=== PATIENT | male | born 1960 | race Asian ===

== ENCOUNTER 2019-11-22 15:14 | Emergency (ER) | payer MEDICAID, OTHER ==
[~2019-11-22] VITALS: Ht 177.8 cm; Wt 62.7 kg
[2019-11-22] MEDS ORDERED: METF-960 PO (15:24)
[2019-11-22] MEDS ORDERED: ISOS30TA6 PO (15:26)
[2019-11-22] MEDS ORDERED: ATOR40TA71 PO (15:26)
[2019-11-22] MEDS ORDERED: ASPI-1111 PO (15:26)
[2019-11-22] MEDS ORDERED: GLIP5TAB11 PO (15:26)
[2019-11-22 15:39] LABS: GLUCOMETER DEV NAME(LOC) AHU.; GLUCOSE,POINT OF CARE 347 MG/DL (70-110)
[2019-11-22] MEDS ORDERED: SODIUM CHLORIDE 0.9% 1,000 ML IV ONE (16:30)
[2019-11-22] MEDS ORDERED: SODIUM PHOS/SODIUM BIPHOS 133 ML ENEMA PR ONE (17:45)
[2019-11-22 17:46] LABS: HEMATOCRIT 41.4 % (41-53); HEMOGLOBIN 13.3 g/dL (13.5-17.5); MEAN CORPUSCULAR HEMOGLOBIN 29.2 pg (26.0-34.0); MEAN CORPUSCULAR HGB CONC 32.2 G/dL (31.0-37.0); MEAN CORPUSCULAR VOLUME 91 fL (80-100); PLATELET COUNT (AUTO) 211 K/uL (150-450); RED BLOOD CELL COUNT(AUTO) 4.56 MIL/uL (4.50-5.90); RED CELL DISTRIBUTION WIDTH 12.6 % (11.5-14.5)
[2019-11-22 17:51] LABS: GLUCOMETER DEV NAME(LOC) AHU.; GLUCOSE,POINT OF CARE 296 MG/DL (70-110)
[2019-11-22 17:55] LABS: ANION GAP 13 mmol/L (8-16); CARBON DIOXIDE 23 mmol/L (22-29); CHLORIDE 101 mmol/L (98-107); CREATININE 0.89 mg/dL (0.60-1.30); GLOMERULAR FILTR. RATE CALC > 60 mL/min (>60); GLUCOSE,RANDOM 307 mg/dL (70-110); POTASSIUM 4.5 mmol/L (3.5-5.1); SODIUM SERUM 137 mmol/L (136-145); UREA NITROGEN, BLOOD 15 mg/dL (7-18)
[2019-11-22 18:00] LABS: ALANINE AMINOTRANSFERASE 18 U/L (12-78); ALBUMIN 3.6 g/dL (3.4-5.0); ALKALINE PHOSPHATASE 72 U/L (46-116); ASPARTATE AMINOTRANSFERASE 14 U/L (15-37); BILIRUBIN,TOTAL 0.6 mg/dL (0.1-1.0); LIPASE 112 U/L (73-393); TOTAL PROTEIN, SERUM 7.8 g/dL (6.4-8.2)
[2019-11-22 19:03] LABS: BAND NEUTROPHILS % (MANUAL) 10 % (0-5); BASOPHILS % (MANUAL) 1 % (0-2); LYMPHOCYTES % (MANUAL) 6 % (22-44); MONOCYTES % (MANUAL) 6 % (2-9); SEGMENTED NEUTROPHILS % 77 % (40-70)
[2019-11-22 20:27] LABS: APPEARANCE,URINE CLEAR (CLEAR); BILIRUBIN,URINE NEGATIVE (NEGATIVE); GLUCOSE, URINE (UA) >=1000 mg/dL (NEGATIVE); KETONES,URINE 40 mg/dL (NEGATIVE); LEUKOCYTE ESTERASE ,URINE NEGATIVE (NEGATIVE); NITRATE,URINE NEGATIVE (NEGATIVE); OCCULT BLOOD,URINE MODERATE (NEGATIVE); PROTEIN,URINE NEGATIVE (NEGATIVE); UROBILINOGEN,URINE 0.2 mg/dL (<=1.0)
[2019-11-22 21:00] VITALS: BP 145/75
[2019-11-22 21:23] LABS: BACTERIA,URINE None Seen /HPF (None Seen); RBC,URINE 0-2 /HPF (0-2); WBC,URINE 0-2 /HPF (0-5)
[2019-11-22 21:24] LABS: SQUAMOUS EPITHELIAL CELL,UR None Seen /LPF (None Seen)
== END 2019-11-22 21:30 | disposition home or self-care (01) ==
LOC: EMS 15:14
DX: K59.00 Constipation, unspecified (principal); R33.9 Retention of urine, unspecified; Z03.818 Encounter for observation for suspected exposure to other biological agents ruled out; R07.89 Other chest pain; R06.02 Shortness of breath; E11.9 Type 2 diabetes mellitus without complications; I10 Essential (primary) hypertension; Z79.84 Long term (current) use of oral hypoglycemic drugs
CPT/HCPCS: 36415; 51702; 74018; 80053; 81001; 81002; 82962; 83690; 85025; 87635; 99285; J7030; 82948

== ENCOUNTER 2022-02-03 09:59 | Emergency (ER) | payer OTHER ==
[~2022-02-03] VITALS: Ht 162.6 cm; Wt 72.7 kg
[~2022-02-03 09:59] MED LIST: ASPI-1444 PO; ATOR40TA71 PO; GLIP5TAB11 PO; ISOS30TA92 PO; METF-1211 PO
[2022-02-03] MEDS ORDERED: INSULIN REGULAR, HUMAN 100 UNITS/ML IVP ONE ×3 (10:30→14:00)
[2022-02-03] MEDS ORDERED: SODIUM CHLORIDE 0.9% 1,000 ML IV ONE ×2 (10:30→14:00)
[2022-02-03 10:45] LABS: BASOPHILS % (AUTO) 0.9 % (0.0-2.0); HEMATOCRIT 40.5 % (41-53); HEMOGLOBIN 13.8 g/dL (13.5-17.5); LYMPHOCYTES # (AUTO) 1.1 K/uL (1.0-4.8); LYMPHOCYTES % (AUTO) 23.3 % (22.0-44.0); MEAN CORPUSCULAR HEMOGLOBIN 29.9 pg (26.0-34.0); MEAN CORPUSCULAR HGB CONC 34.2 G/dL (31.0-37.0); MEAN CORPUSCULAR VOLUME 88 fL (80-100); MONOCYTES # (AUTO) 0.4 K/uL (0.1-1.0); MONOCYTES % (AUTO) 8.7 % (2.0-9.0); NEUTROPHILS # (AUTO) 3.1 K/uL (1.8-7.7); NEUTROPHILS % (AUTO) 64.1 % (40.0-70.0); PLATELET COUNT (AUTO) 181 K/uL (150-450); RED BLOOD CELL COUNT(AUTO) 4.62 MIL/uL (4.50-5.90); RED CELL DISTRIBUTION WIDTH 12.8 % (11.5-14.5)
[2022-02-03] MEDS ORDERED: OMEP20 PO (10:46)
[2022-02-03] MEDS ORDERED: LISI-894 PO (10:46)
[2022-02-03] MEDS ORDERED: IBUP-2070 PO (10:46)
[2022-02-03 11:01] LABS: ALANINE AMINOTRANSFERASE 22 U/L (12-78); ALBUMIN 3.5 g/dL (3.4-5.0); ALKALINE PHOSPHATASE 84 U/L (46-116); ANION GAP 8 mmol/L (8-16); ASPARTATE AMINOTRANSFERASE 13 U/L (15-37); BILIRUBIN,TOTAL 0.3 mg/dL (0.1-1.0); CARBON DIOXIDE 25 mmol/L (22-29); CHLORIDE 99 mmol/L (98-107); CREATININE 1.02 mg/dL (0.60-1.30); POTASSIUM 4.5 mmol/L (3.5-5.1); SODIUM SERUM 132 mmol/L (136-145); TOTAL PROTEIN, SERUM 7.4 g/dL (6.4-8.2); UREA NITROGEN, BLOOD 18 mg/dL (7-18)
[2022-02-03 11:04] LABS: GLOMERULAR FILTR. RATE CALC > 60 mL/min (>60); GLUCOSE,RANDOM 562 mg/dL (70-110)
[2022-02-03 11:23] LABS: APPEARANCE,URINE CLEAR (CLEAR); BILIRUBIN,URINE NEGATIVE (NEGATIVE); GLUCOSE, URINE (UA) >=1000 mg/dL (NEGATIVE); KETONES,URINE NEGATIVE (NEGATIVE); LEUKOCYTE ESTERASE ,URINE NEGATIVE (NEGATIVE); NITRATE,URINE NEGATIVE (NEGATIVE); OCCULT BLOOD,URINE NEGATIVE (NEGATIVE); PROTEIN,URINE NEGATIVE (NEGATIVE); SPECIFIC GRAVITIY, URINE 1.027 (1.003-1.030); UROBILINOGEN,URINE <=1.0 mg/dL (<=1.0)
[2022-02-03 11:31] LABS: BACTERIA,URINE None Seen /HPF (None Seen); RBC,URINE 0-2 /HPF (0-2); WBC,URINE None Seen /HPF (0-5)
[2022-02-03] MEDS ORDERED: AmLODIPine BESYLATE 5 MG TABLET PO ONE (11:45)
[2022-02-03 12:37] LABS: GLUCOSE,POINT OF CARE 307 MG/DL (70-110)
[2022-02-03 13:36] LABS: GLUCOSE,POINT OF CARE 360 MG/DL (70-110)
[2022-02-03 14:56] LABS: GLUCOSE,POINT OF CARE 251 MG/DL (70-110)
[2022-02-03 15:17] VITALS: BP 159/94
== END 2022-02-03 15:24 | disposition home or self-care (01) ==
LOC: EMS 09:59
DX: E11.65 Type 2 diabetes mellitus with hyperglycemia (principal); E86.0 Dehydration; I10 Essential (primary) hypertension
CPT/HCPCS: 99285; 96374; 96361; 80053; 81001; 82962; 85025; 36415; 96376; 82948; J7030; J1815

== ENCOUNTER 2022-03-20 04:07 | Emergency (ER) | payer OTHER ==
[~2022-03-20] VITALS: Ht 177.8 cm; Wt 63.6 kg
[~2022-03-20 04:07] MED LIST changes: +IBUP-2070 PO; +LISI-894 PO; +OMEP20 PO
[2022-03-20 04:21] LABS: GLUCOSE,POINT OF CARE 434 MG/DL (70-110)
[2022-03-20] MEDS ORDERED: SODIUM CHLORIDE 0.9% 1,000 ML IV ONE ×3 (04:45→09:30)
[2022-03-20] MEDS ORDERED: INSULIN REGULAR, HUMAN 100 UNITS/ML IVP ONE ×2 (04:45→07:15)
[2022-03-20 04:56] LABS: COVID AG,FIA SOURCE NASAL SWAB
[2022-03-20 05:00] LABS: BASOPHILS % (AUTO) 0.5 % (0.0-2.0); EOSINOPHILS % (AUTO) 0 % (1.0-6.0); HEMATOCRIT 43.8 % (41-53); HEMOGLOBIN 14.9 g/dL (13.5-17.5); LYMPHOCYTES # (AUTO) 1.2 K/uL (1.0-4.8); LYMPHOCYTES % (AUTO) 7.8 % (22.0-44.0); MEAN CORPUSCULAR HEMOGLOBIN 30.4 pg (26.0-34.0); MEAN CORPUSCULAR HGB CONC 34.1 G/dL (31.0-37.0); MEAN CORPUSCULAR VOLUME 89 fL (80-100); MONOCYTES # (AUTO) 0.4 K/uL (0.1-1.0); MONOCYTES % (AUTO) 2.7 % (2.0-9.0); NEUTROPHILS # (AUTO) 13.3 K/uL (1.8-7.7); PLATELET COUNT (AUTO) 213 K/uL (150-450); RED BLOOD CELL COUNT(AUTO) 4.91 MIL/uL (4.50-5.90); RED CELL DISTRIBUTION WIDTH 13.1 % (11.5-14.5)
[2022-03-20 05:11] LABS: ALANINE AMINOTRANSFERASE 20 U/L (12-78); ALBUMIN 4.1 g/dL (3.4-5.0); ALKALINE PHOSPHATASE 86 U/L (46-116); ANION GAP 19 mmol/L (8-16); ASPARTATE AMINOTRANSFERASE 14 U/L (15-37); BILIRUBIN,TOTAL 0.9 mg/dL (0.1-1.0); CALCIUM, TOTAL 9.2 mg/dL (8.8-10.5); CARBON DIOXIDE 22 mmol/L (22-29); CHLORIDE 90 mmol/L (98-107); CREATINE KINASE, TOTAL ONLY 60 U/L (39-308); CREATININE 1.45 mg/dL (0.60-1.30); LIPASE 73 U/L (73-393); POTASSIUM 4.2 mmol/L (3.5-5.1); SODIUM SERUM 131 mmol/L (136-145); TOTAL PROTEIN, SERUM 8.3 g/dL (6.4-8.2); UREA NITROGEN, BLOOD 30 mg/dL (7-18)
[2022-03-20 05:13] LABS: GLOMERULAR FILTR. RATE CALC 49 mL/min (>60); GLUCOSE,RANDOM 465 mg/dL (70-110)
[2022-03-20 05:23] LABS: INFLUENZA TYPE A NEGATIVE FOR TYPE A (NEGATIVE); INFLUENZA TYPE B NEGATIVE FOR TYPE B (NEGATIVE)
[2022-03-20 05:28] LABS: B-TYPE NATRIURETIC PEPTIDE 11 pg/mL (0-100)
[2022-03-20] MEDS ORDERED: ONDANSETRON HCL 4 MG/2 ML VIAL IVP ONE (05:30)
[2022-03-20 05:36] LABS: GLUCOMETER DEV NAME(LOC) ERT.5; GLUCOSE,POINT OF CARE 428 MG/DL (70-110)
[2022-03-20 06:43] LABS: APPEARANCE,URINE CLEAR (CLEAR); BILIRUBIN,URINE NEGATIVE (NEGATIVE); GLUCOSE, URINE (UA) >=1000 mg/dL (NEGATIVE); KETONES,URINE 80-100 mg/dL (NEGATIVE); LEUKOCYTE ESTERASE ,URINE NEGATIVE (NEGATIVE); NITRATE,URINE NEGATIVE (NEGATIVE); OCCULT BLOOD,URINE NEGATIVE (NEGATIVE); PROTEIN,URINE 30-70 mg/dL (NEGATIVE); UROBILINOGEN,URINE <=1.0 mg/dL (<=1.0)
[2022-03-20 06:50] LABS: AMPHET/METH SCREEN,URINE NEGATIVE (NEGATIVE); BARBITURATE SCREEN, URINE NEGATIVE (NEGATIVE); BENZODIAZEPINES SCREEN,URINE NEGATIVE (NEGATIVE); CANNABINOID SCREEN,URINE NEGATIVE (NEGATIVE); COCAINE SCREEN,URINE NEGATIVE (NEGATIVE); METHADONE SCREEN, URINE NEGATIVE (NEGATIVE); OPIATE SCREEN,URINE NEGATIVE (NEGATIVE); PHENCYCLIDINE SCREEN,URINE NEGATIVE (NEGATIVE)
[2022-03-20] MEDS ORDERED: ACETAMINOPHEN 500 MG TABLET PO ONE (07:15)
[2022-03-20 07:26] LABS: GLUCOMETER DEV NAME(LOC) ERT.5; GLUCOSE,POINT OF CARE 313 MG/DL (70-110)
[2022-03-20 08:16] LABS: BACTERIA,URINE None Seen /HPF (None Seen); RBC,URINE 0-2 /HPF (0-2); WBC,URINE None Seen /HPF (0-5)
[2022-03-20 09:20] LABS: GLUCOMETER DEV NAME(LOC) ERT.5; GLUCOSE,POINT OF CARE 239 MG/DL (70-110)
[2022-03-20] MEDS ORDERED: DIPHENOXYLATE/ATROP 2.5-0.025 MG TABLET PO ONE (09:30)
[2022-03-20] MEDS ORDERED: MetFORMIN HCL 500 MG ER TABLET PO ONE (09:30)
[2022-03-20 10:03] LABS: ANION GAP 14 mmol/L (8-16); CALCIUM, TOTAL 8.1 mg/dL (8.8-10.5); CARBON DIOXIDE 22 mmol/L (22-29); CHLORIDE 99 mmol/L (98-107); CREATININE 1.01 mg/dL (0.60-1.30); GLUCOSE,RANDOM 246 mg/dL (70-110); SODIUM SERUM 135 mmol/L (136-145); UREA NITROGEN, BLOOD 24 mg/dL (7-18)
[2022-03-20 10:05] LABS: GLOMERULAR FILTR. RATE CALC > 60 mL/min (>60)
[2022-03-20 10:51] VITALS: BP 123/74
[2022-03-20] MEDS ORDERED: DIPH-654 PO (10:59)
[2022-03-20] MEDS ORDERED: ACET-66 PO (10:59)
[2022-03-20] MEDS ORDERED: GLIP5TAB12 PO (10:59)
[2022-03-20] MEDS ORDERED: METF-910 PO (10:59)
== END 2022-03-20 11:19 | disposition home or self-care (01) ==
LOC: EMS 04:08
DX: R10.10 Upper abdominal pain, unspecified (principal); E11.65 Type 2 diabetes mellitus with hyperglycemia; E86.0 Dehydration; I10 Essential (primary) hypertension; Z20.822 Contact with and (suspected) exposure to COVID-19
CPT/HCPCS: 99285; 74176; 96374; 96361; 96375; 87426; 80053; 82009; 82550; 82962; 83605; 83690; 83880; 84484; 85025; 87804; 36415; 74022; 93005; 96376; 80307; 81001; 80048; G0480; J2405; J7030; J1815; 81003

== ENCOUNTER 2022-05-09 12:21 | Emergency (ER) | payer OTHER ==
[~2022-05-09] VITALS: Ht 175.3 cm; Wt 56.1 kg
[~2022-05-09 12:21] MED LIST changes: +ACET-66 PO; +DIPH-654 PO; +GLIP5TAB12 PO; +METF-910 PO
[2022-05-09] MEDS ORDERED: FLUORESCEIN SODIUM 1 MG STRIP OD ONE (14:45)
[2022-05-09] MEDS ORDERED: PROPARACAINE HCL 0.5% 15 ML OPHTHALMIC SOLUTION OD ONE (14:45)
[2022-05-09] MEDS ORDERED: SODIUM CHLORIDE 0.9% 1,000 ML IV ONE (15:00)
[2022-05-09 15:46] LABS: ANION GAP 7 mmol/L (8-16); CALCIUM, TOTAL 9.1 mg/dL (8.8-10.5); CARBON DIOXIDE 28 mmol/L (22-29); CHLORIDE 99 mmol/L (98-107); GLUCOSE,RANDOM 332 mg/dL (70-110); POTASSIUM 4.6 mmol/L (3.5-5.1); SODIUM SERUM 134 mmol/L (136-145); UREA NITROGEN, BLOOD 21 mg/dL (7-18)
[2022-05-09] MEDS ORDERED: AMOX500C2 PO (15:50)
[2022-05-09] MEDS ORDERED: ERYT3.5O8 OD (15:50)
[2022-05-09 15:52] LABS: CREATININE 1.21 mg/dL (0.60-1.30)
[2022-05-09 15:59] LABS: GLOMERULAR FILTR. RATE CALC > 60 mL/min (>60)
[2022-05-09 16:45] VITALS: BP 146/94
== END 2022-05-09 16:54 | disposition home or self-care (01) ==
LOC: EMS 12:21
DX: H00.031 Abscess of right upper eyelid (principal); E11.65 Type 2 diabetes mellitus with hyperglycemia; I10 Essential (primary) hypertension
CPT/HCPCS: 99283; 96360; 80048; 82962; 36415; J7030

== ENCOUNTER 2023-06-02 13:47 | Emergency (ER) | payer OTHER ==
[~2023-06-02] VITALS: Ht 170.2 cm; Wt 63.6 kg
[~2023-06-02 13:47] MED LIST changes: +DULA0.75 SQ; -GLIP5TAB11 PO; -GLIP5TAB12 PO; -IBUP-2070 PO; +INSLAN SQ; -ISOS30TA92 PO; +ISOS60TA77 PO; -METF-910 PO; +NAPR-1197 PO; +PRED-549 PO; +SYRI-590 SQ
[2023-06-02 14:09] VITALS: TEMP 98.2
[2023-06-02] MEDS ORDERED: SODIUM CHLORIDE 0.9% 1,000 ML IV ONE (14:30)
[2023-06-02] MEDS ORDERED: SACU1TAB PO (14:35)
[2023-06-02] MEDS ORDERED: CLOT113C TP (14:35)
[2023-06-02 14:41] LABS: BASOPHILS % (AUTO) 0.5 % (0.0-2.0); EOSINOPHILS % (AUTO) 0.1 % (1.0-6.0); HEMATOCRIT 34.3 % (41-53); HEMOGLOBIN 11.6 g/dL (13.5-17.5); LYMPHOCYTES # (AUTO) 0.5 K/uL (1.0-4.8); MEAN CORPUSCULAR HEMOGLOBIN 29.8 pg (26.0-34.0); MEAN CORPUSCULAR HGB CONC 33.9 G/dL (31.0-37.0); MEAN CORPUSCULAR VOLUME 88 fL (80-100); MONOCYTES # (AUTO) 0.4 K/uL (0.1-1.0); NEUTROPHILS # (AUTO) 9.9 K/uL (1.8-7.7); PLATELET COUNT (AUTO) 340 K/uL (150-450); RED BLOOD CELL COUNT(AUTO) 3.91 MIL/uL (4.50-5.90); RED CELL DISTRIBUTION WIDTH 12.5 % (11.5-14.5)
[2023-06-02 14:43] LABS: NEUTROPHILS % (AUTO) 90.4 % (40.0-70.0); RBC MORPHOLOGY COMMENT NORMAL RBC MORPH
[2023-06-02 14:52] LABS: ANION GAP 9 mmol/L (8-16); CALCIUM, TOTAL 9.1 mg/dL (8.8-10.5); CARBON DIOXIDE 30 mmol/L (22-29); CHLORIDE 103 mmol/L (98-107); CREATININE 1.04 mg/dL (0.60-1.30); GLOMERULAR FILTR. RATE CALC > 60 mL/min (>60); GLUCOSE,RANDOM 95 mg/dL (70-110); SODIUM SERUM 142 mmol/L (136-145); UREA NITROGEN, BLOOD 17 mg/dL (7-18)
[2023-06-02 14:57] LABS: ALANINE AMINOTRANSFERASE 15 U/L (12-78); ALBUMIN 2.9 g/dL (3.4-5.0); ALKALINE PHOSPHATASE 90 U/L (46-116); ASPARTATE AMINOTRANSFERASE 18 U/L (15-37); BILIRUBIN,TOTAL 0.3 mg/dL (0.1-1.0); LIPASE 21 U/L (16-77); TOTAL PROTEIN, SERUM 7.9 g/dL (6.4-8.2)
[2023-06-02 14:59] LABS: TROPONIN I-HIGH SENSITIVITY 10 ng/L (<76)
[2023-06-02 17:30] LABS: APPEARANCE,URINE CLEAR (CLEAR); BILIRUBIN,URINE NEGATIVE (NEGATIVE); COLOR,URINE LIGHT YELLOW (YELLOW); GLUCOSE, URINE (UA) 70-100 mg/dL (NEGATIVE); KETONES,URINE NEGATIVE (NEGATIVE); LEUKOCYTE ESTERASE ,URINE NEGATIVE (NEGATIVE); NITRATE,URINE NEGATIVE (NEGATIVE); OCCULT BLOOD,URINE TRACE (NEGATIVE); PH,URINE 7.5 (5.0-8.0); PROTEIN,URINE 300-600,SEE CONFIRM mg/dL (NEGATIVE); SPECIFIC GRAVITIY, URINE 1.015 (1.003-1.030); UROBILINOGEN,URINE <=1.0 mg/dL (<=1.0)
[2023-06-02 17:53] LABS: SULFOSALICYLIC ACID,URINE 4+ (Negative)
[2023-06-02 17:54] LABS: BACTERIA,URINE None Seen /HPF (None Seen); RBC,URINE None Seen /HPF (0-2); WBC,URINE None Seen /HPF (0-5)
[2023-06-02 20:30] VITALS: BP 139/82; PULSE 82; RESP 17
== END 2023-06-02 20:33 | disposition home or self-care (01) ==
LOC: EMS 14:25
DX: R11.2 Nausea with vomiting, unspecified (principal); E11.9 Type 2 diabetes mellitus without complications; I10 Essential (primary) hypertension
CPT/HCPCS: 99284; 74176; 96360; 76705; 80053; 81001; 83690; 84484; 85025; 36415; 93005; J7030; 81002; 81003; 99285

== ENCOUNTER 2024-05-29 22:39 | Inpatient (IN) | payer MEDICAID, OTHER ==
[~2024-05-29] VITALS: Ht 177.8 cm; Wt 64.0 kg
[~2024-05-29 22:39] MED LIST changes: -ACET-66 PO; +AMLO-258 PO; -DIPH-654 PO; -LISI-894 PO; +LOSA-381 PO; -METF-1211 PO; -NAPR-1197 PO; -PRED-549 PO
[2024-05-29] MEDS ORDERED: 0.9% SODIUM CHLORIDE 10 ML SYRINGE IVP PRN ×2 (23:00→23:15)
[2024-05-29] MEDS: SODIUM CHLORIDE 0.9% 1,000 ML IV ONE ×2 (23:32→23:33)
[2024-05-29] MEDS: ONDANSETRON HCL 4 MG/2 ML VIAL IVP ONE (23:32)
[2024-05-29] MEDS: ACETAMINOPHEN 500 MG TABLET PO ONE (23:33)
[2024-05-29] MEDS: CefTRIAXone 1 GM/DEXTROSE 50 ML IV SCH (23:33)
[2024-05-29] MEDS: HydrALAZINE HCL 20 MG/ML VIAL IVP PRN (23:33)
[2024-05-29 23:45] LABS: TROPONIN I-HIGH SENSITIVITY 18 ng/L (<76)
[2024-05-29] MEDS: NITROGLYCERIN 2% (1 GM=INCH) OINTMENT PACKET TP SCH (23:45)
[2024-05-29 23:57] LABS: B-TYPE NATRIURETIC PEPTIDE 302 pg/mL (0-100)
[2024-05-29 23:59] LABS: LACTIC ACID 2.6 mmol/L (0.4-2.0)
[2024-05-30] LABS: COVID AG,FIA SOURCE NASAL SWAB
[2024-05-30 00:20] LABS: ANION GAP 11 mmol/L (8-16); CALCIUM, TOTAL 7.8 mg/dL (8.8-10.5); CARBON DIOXIDE 25 mmol/L (22-29); CHLORIDE 106 mmol/L (98-107); GLOMERULAR FILTR. RATE CALC 41 mL/min (>60); GLUCOSE,RANDOM 97 mg/dL (70-110); POTASSIUM 4.7 mmol/L (3.5-5.1); SODIUM SERUM 141 mmol/L (136-145); UREA NITROGEN, BLOOD 26 mg/dL (7-18)
[2024-05-30 00:45] LABS: ALANINE AMINOTRANSFERASE 18 U/L (12-78); ALBUMIN 3.1 g/dL (3.4-5.0); ALKALINE PHOSPHATASE 65 U/L (46-116); ASPARTATE AMINOTRANSFERASE 23 U/L (15-37); BILIRUBIN,TOTAL 0.2 mg/dL (0.1-1.0); CREATINE KINASE, TOTAL ONLY 219 U/L (39-308); TOTAL PROTEIN, SERUM 6.6 g/dL (6.4-8.2)
[2024-05-30 00:57] LABS: INFLUENZA TYPE A NEGATIVE FOR TYPE A (NEGATIVE); INFLUENZA TYPE B NEGATIVE FOR TYPE B (NEGATIVE)
[2024-05-30 00:58] LABS: SARS-COV2 (COVID) ANTIGEN,FIA Negative (Negative)
[2024-05-30] MEDS: LABETALOL HCL 5 MG/ML 20 ML VIAL IVP ONE (01:05)
[2024-05-30 01:06] LABS: LACTATE DEHYDROGENASE 228 U/L (85-227); THYROID STIMULATING HORMONE 1.13 uIU/mL (0.36-3.74)
[2024-05-30 01:22] LABS: BASOPHILS % (AUTO) 0.8 % (0.0-2.0); EOSINOPHILS % (AUTO) 0.8 % (1.0-6.0); HEMATOCRIT 31.8 % (41-53); HEMOGLOBIN 10.4 g/dL (13.5-17.5); LYMPHOCYTES # (AUTO) 0.8 K/uL (1.0-4.8); LYMPHOCYTES % (AUTO) 12.2 % (22.0-44.0); MEAN CORPUSCULAR HEMOGLOBIN 29.3 pg (26.0-34.0); MEAN CORPUSCULAR HGB CONC 32.6 G/dL (31.0-37.0); MEAN CORPUSCULAR VOLUME 90 fL (80-100); MONOCYTES # (AUTO) 0.3 K/uL (0.1-1.0); MONOCYTES % (AUTO) 4.6 % (2.0-9.0); NEUTROPHILS # (AUTO) 5.5 K/uL (1.8-7.7); NEUTROPHILS % (AUTO) 81.6 % (40.0-70.0); RED BLOOD CELL COUNT(AUTO) 3.54 MIL/uL (4.50-5.90); RED CELL DISTRIBUTION WIDTH 14.3 % (11.5-14.5); WHITE BLOOD COUNT (AUTO) 6.8 K/uL (4.5-11.0)
[2024-05-30 01:23] LABS: PLATELET COUNT (AUTO) 256 K/uL (150-450)
[2024-05-30 07:41] LABS: APPEARANCE,URINE CLEAR (CLEAR); BILIRUBIN,URINE NEGATIVE (NEGATIVE); COLOR,URINE LIGHT YELLOW (YELLOW); GLUCOSE, URINE (UA) NEGATIVE (NEGATIVE); KETONES,URINE NEGATIVE (NEGATIVE); LEUKOCYTE ESTERASE ,URINE NEGATIVE (NEGATIVE); NITRATE,URINE NEGATIVE (NEGATIVE); OCCULT BLOOD,URINE TRACE (NEGATIVE); PROTEIN,URINE 300-600,SEE CONFIRM mg/dL (NEGATIVE); SPECIFIC GRAVITIY, URINE 1.015 (1.003-1.030); UROBILINOGEN,URINE <=1.0 mg/dL (<=1.0)
[2024-05-30 07:42] LABS: SULFOSALICYLIC ACID,URINE 3+ (Negative)
[2024-05-30 07:43] LABS: BACTERIA,URINE None Seen /HPF (None Seen); RBC,URINE 0-2 /HPF (0-2); WBC,URINE None Seen /HPF (0-5)
[2024-05-30 08:21] LABS: CREATININE,URINE RANDOM 68.2 mg/dL (30.0-125.0)
[2024-05-30 11:21] LABS: GLUCOMETER DEV NAME(LOC) ERT.6; GLUCOSE,POINT OF CARE 72 MG/DL (70-110)
[2024-05-30 11:21] LABS: GLUCOMETER DEV NAME(LOC) ERT.6; GLUCOSE,POINT OF CARE 105 MG/DL (70-110)
[2024-05-30 15:29] VITALS: BP_SYST 127; BP_SYST 152; BP_DIAS 77; PULSE 109; PULSE 94; RESP 18; RESP 20; TEMP 97.5; TEMP 97.6; O2SAT 97
[2024-05-30 15:36] LABS: GLUCOMETER DEV NAME(LOC) 5N.2C; GLUCOSE,POINT OF CARE 60 MG/DL (70-110)
[2024-05-30 15:36] LABS: GLUCOMETER DEV NAME(LOC) 5N.2C; GLUCOSE,POINT OF CARE 88 MG/DL (70-110)
[2024-05-30 15:36] LABS: GLUCOMETER DEV NAME(LOC) 5N.2C; GLUCOSE,POINT OF CARE 67 MG/DL (70-110)
[2024-05-30] MEDS: ONDANSETRON HCL 4 MG/2 ML VIAL IVP PRN (17:52)
[2024-05-30] MEDS: DEXTROSE 5%-0.45% SODIUM CHL 1,000 ML IV SCH (18:02)
[2024-05-30] MEDS: DEXTROSE 50%-WATER 25 GM/50 ML SYRINGE IVP ONE (18:02)
[2024-05-30 20:00] VITALS: BP 151/80; PULSE 107; RESP 18; TEMP 98.2; O2SAT 98
[2024-05-30 21:00] LABS: GLUCOMETER DEV NAME(LOC) 5N.1D; GLUCOSE,POINT OF CARE 104 MG/DL (70-110)
[2024-05-30 21:00] LABS: GLUCOMETER DEV NAME(LOC) 5N.1D; GLUCOSE,POINT OF CARE 53 MG/DL (70-110)
[2024-05-31] VITALS: BP 145/79; PULSE 105; RESP 20; TEMP 97.7; O2SAT 96
[2024-05-31 01:11] LABS: GLUCOMETER DEV NAME(LOC) 5N.2C; GLUCOSE,POINT OF CARE 68 MG/DL (70-110)
[2024-05-31 01:11] LABS: GLUCOMETER DEV NAME(LOC) 5N.2C; GLUCOSE,POINT OF CARE 85 MG/DL (70-110)
[2024-05-31 04:00] VITALS: BP 149/81; PULSE 105; RESP 19; TEMP 97.9; O2SAT 97
[2024-05-31 08:16] VITALS: BP 189/100; PULSE 111; RESP 18; TEMP 98; O2SAT 96
[2024-05-31 09:00] VITALS: BP 133/76; PULSE 117; RESP 18; TEMP 98; O2SAT 96
[2024-05-31] MEDS ORDERED: DEXTROSE 50%-WATER 25 GM/50 ML SYRINGE IVP PRN (11:30)
[2024-05-31] MEDS ORDERED: INSULIN LISPRO 100 UNITS/ML SQ PRN (11:30)
[2024-05-31 12:06] VITALS: BP 142/68; PULSE 115; RESP 18; TEMP 98; O2SAT 95
[2024-05-31 14:16] LABS: GLUCOMETER DEV NAME(LOC) 5N.1D; GLUCOSE,POINT OF CARE 128 MG/DL (70-110)
[2024-05-31 14:16] LABS: GLUCOMETER DEV NAME(LOC) 5N.1D; GLUCOSE,POINT OF CARE 136 MG/DL (70-110)
[2024-05-31] MEDS ORDERED: SACU1TAB7 PO (14:32)
[2024-05-31] MEDS ORDERED: CARV25TA32 PO (14:32)
[2024-05-31] MEDS ORDERED: CARVEDILOL 25 MG TABLET PO SCH (14:45)
[2024-05-31] MEDS ORDERED: BISACODYL 10 MG RECTAL RECTAL SUPPOSITORY PR PRN (14:45)
[2024-05-31] MEDS ORDERED: MAGNESIUM HYDROXIDE SUSPENSION 30 ML UDCUP PO PRN (14:45)
[2024-05-31] MEDS ORDERED: IPRATROPIUM BROMIDE 0.5 MG/2.5 ML NEB SOLUTION NEB PRN (14:45)
[2024-05-31] MEDS ORDERED: OxyCODONE HCL/ACETAMINOPHEN 5-325 MG TABLET PO PRN (14:45)
[2024-05-31] MEDS ORDERED: ASPIRIN 81 MG DR TABLET PO SCH (14:45)
[2024-05-31] MEDS ORDERED: ACETAMINOPHEN 325 MG TABLET PO PRN (14:45)
[2024-05-31] MEDS ORDERED: ATORVASTATIN CALCIUM 40 MG TABLET PO SCH (14:45)
[2024-05-31] MEDS ORDERED: OMEPRAZOLE 20 MG CAPSULE PO SCH (14:45)
[2024-05-31] MEDS ORDERED: SACUBITRIL/VALSARTAN 49-51 MG TABLET PO SCH (14:45)
[2024-05-31] MEDS ORDERED: ZOLPIDEM TARTRATE 5 MG TABLET PO PRN (14:45)
[2024-05-31] MEDS ORDERED: ALBUTEROL SULFATE 2.5 MG/0.5 ML NEB SOLUTION NEB PRN (14:45)
[2024-05-31] MEDS ORDERED: MORPHINE SULFATE 2 MG/ML SYRINGE IVP PRN (14:45)
[2024-05-31] MEDS ORDERED: ONDANSETRON HCL 4 MG/2 ML VIAL IVP PRN (14:45)
[2024-05-31 14:46] LABS: TROPONIN I-HIGH SENSITIVITY 28 ng/L (<76)
[2024-05-31 15:13] VITALS: BP 136/72; PULSE 110; RESP 19; TEMP 97.8; O2SAT 97
[2024-05-31] MEDS ORDERED: HEPARIN SODIUM,PORCINE 5,000 UNITS/ML VIAL SQ SCH (16:00)
[2024-05-31 18:16] LABS: GLUCOMETER DEV NAME(LOC) 5S.2D; GLUCOSE,POINT OF CARE 189 MG/DL (70-110)
[2024-05-31 18:16] LABS: GLUCOMETER DEV NAME(LOC) 5N.2C; GLUCOSE,POINT OF CARE 185 MG/DL (70-110)
[2024-05-31 18:20] LABS: GLUCOMETER DEV NAME(LOC) 5N.2C; GLUCOSE,POINT OF CARE 215 MG/DL (70-110)
[2024-06-01] MEDS ORDERED: DOCUSATE SODIUM 100 MG/10 ML LIQUID UDCUP PO SCH (09:00)
== END 2024-05-31 15:00 | disposition left against medical advice (07) | DRG 872 ==
LOC: EMS 22:39 → EDH 05-30 08:07 → 5S 05-30 11:30
PROVIDERS: ADMIT Internal Medicine; ATTEND Internal Medicine
DX: A41.9 Sepsis, unspecified organism (principal); I16.1 Hypertensive emergency; T68.XXXA Hypothermia, initial encounter; E11.649 Type 2 diabetes mellitus with hypoglycemia without coma; Z20.822 Contact with and (suspected) exposure to COVID-19; E78.5 Hyperlipidemia, unspecified; I10 Essential (primary) hypertension; I95.9 Hypotension, unspecified; M10.9 Gout, unspecified; Z53.29 Procedure and treatment not carried out because of patient's decision for other reasons
CPT/HCPCS: 70450; 71045; 80053; 81001; 81002; 82550; 82570; 82962; 83605; 83615; 83880; 84145; 84300; 84443; 84484; 85025; 85730; 87040; 87804; 93005; 99285; G0378; J0360; J0696; J2405; J3490; J7030; 36415-L1; 36415-TC

== ENCOUNTER 2025-02-21 11:42 | Inpatient (IN) | payer OTHER ==
[~2025-02-21] VITALS: Ht 162.6 cm; Wt 56.3 kg
[~2025-02-21 11:42] MED LIST changes: +CARV25TA32 PO; +OMEP-148 PO; -OMEP20 PO; +SACU1TAB7 PO
[2025-02-21 12:17] LABS: PLATELET COUNT (AUTO) 224 K/uL (150-450); RED BLOOD CELL COUNT(AUTO) 3.59 MIL/uL (4.50-5.90); RED CELL DISTRIBUTION WIDTH 14.4 % (11.5-14.5); WHITE BLOOD COUNT (AUTO) 9.2 K/uL (4.5-11.0)
[2025-02-21] MEDS ORDERED: EMPA25TA3 PO (12:23)
[2025-02-21] MEDS ORDERED: PREG25CA19 PO (12:23)
[2025-02-21] MEDS ORDERED: METF-81 PO (12:23)
[2025-02-21] MEDS ORDERED: HYDR25TA84 PO (12:23)
[2025-02-21] MEDS ORDERED: CALC0.2521 PO (12:23)
[2025-02-21] MEDS ORDERED: CHOL25TA4 PO (12:23)
[2025-02-21] MEDS ORDERED: FURO20TA4 PO (12:23)
[2025-02-21] MEDS ORDERED: TIRZ5PEN SQ (12:23)
[2025-02-21] MEDS: SODIUM CHLORIDE 0.9% 1,000 ML IV ONE ×2 (12:23→18:28)
[2025-02-21 12:26] LABS: CALCIUM, TOTAL 9.1 mg/dL (8.8-10.5); CREATININE 2.94 mg/dL (0.60-1.30); GLOMERULAR FILTR. RATE CALC 22 mL/min (>60); GLUCOSE,RANDOM 286 mg/dL (70-110); SODIUM SERUM 142 mmol/L (136-145); UREA NITROGEN, BLOOD 49 mg/dL (7-18)
[2025-02-21] MEDS ORDERED: 0.9% SODIUM CHLORIDE 10 ML SYRINGE IVP PRN (12:30)
[2025-02-21 12:34] LABS: TROPONIN I-HIGH SENSITIVITY 17 ng/L (<76)
[2025-02-21] MEDS: SODIUM CHLORIDE 0.9% 1,600 ML IV ONE (12:34)
[2025-02-21] MEDS: ONDANSETRON HCL 4 MG/2 ML VIAL IVP ONE (12:34)
[2025-02-21] MEDS: METOCLOPRAMIDE HCL 5 MG/ML 2 ML VIAL IVP ONE (12:41)
[2025-02-21 13:30] LABS: LACTIC ACID 1.9 mmol/L (0.4-2.0)
[2025-02-21] MEDS: PIPERACILLIN/TAZO 3.375 GM/D5W 50 ML IV ONE (14:20)
[2025-02-21] MEDS: PANTOPRAZOLE SODIUM 40 MG/VIAL IVP ONE (14:20)
[2025-02-21 17:50] VITALS: BP 165/82; PULSE 102; RESP 18; TEMP 98.5; O2SAT 97
[2025-02-21 18:35] LABS: GLUCOMETER DEV NAME(LOC) 5S.2D; GLUCOSE,POINT OF CARE 219 MG/DL (70-110)
[2025-02-21 20:00] VITALS: BP 167/97; PULSE 107; RESP 18; TEMP 97.7; O2SAT 95
[2025-02-21] MEDS: PIPERACILLIN SODIUM/TAZOBACTAM 2.25 GM in DEXTROSE 5%-WATER 50 ML IV SCH (20:02)
[2025-02-21] MEDS: PREGABALIN 25 MG CAPSULE PO SCH (20:02)
[2025-02-21] MEDS: INSULIN GLARGINE,HUM.REC.ANLOG 100 UNITS/ML SQ SCH (20:08)
[2025-02-21 21:56] LABS: GLUCOMETER DEV NAME(LOC) 5S.2D; GLUCOSE,POINT OF CARE 201 MG/DL (70-110)
[2025-02-22] VITALS (7 sets, daily range): BP systolic 131–206; BP diastolic 70–106; PULSE 82–88; RESP 17–18; TEMP 97.7–98.4; O2SAT 95–98
[2025-02-22 05:58] LABS: PLATELET COUNT (AUTO) 185 K/uL (150-450); RED BLOOD CELL COUNT(AUTO) 3.07 MIL/uL (4.50-5.90); RED CELL DISTRIBUTION WIDTH 14.1 % (11.5-14.5); WHITE BLOOD COUNT (AUTO) 9.5 K/uL (4.5-11.0)
[2025-02-22 06:05] LABS: GLUCOMETER DEV NAME(LOC) 5S.2D; GLUCOSE,POINT OF CARE 162 MG/DL (70-110)
[2025-02-22 06:07] LABS: CALCIUM, TOTAL 8.4 mg/dL (8.8-10.5); CREATININE 2.88 mg/dL (0.60-1.30); GLOMERULAR FILTR. RATE CALC 22.0 mL/min (>60); GLUCOSE,RANDOM 164.0 mg/dL (70-110); SODIUM SERUM 143.0 mmol/L (136-145); UREA NITROGEN, BLOOD 46.0 mg/dL (7-18)
[2025-02-22] MEDS: EMPAGLIFLOZIN 25 MG TABLET PO SCH (09:26)
[2025-02-22] MEDS: CHOLECALCIFEROL (VIT D3) 1,000 UNITS [25 MCG] TABLET PO SCH (09:27)
[2025-02-22] MEDS: ASPIRIN 81 MG DR TABLET PO SCH (09:27)
[2025-02-22] MEDS: ATORVASTATIN CALCIUM 40 MG TABLET PO SCH (09:27)
[2025-02-22] MEDS: ISOSORBIDE MONONITRATE 60 MG ER TABLET PO SCH (09:27)
[2025-02-22] MEDS: MORPHINE SULFATE 2 MG/ML SYRINGE IVP PRN (09:45)
[2025-02-22] MEDS ORDERED: SODIUM CHLORIDE 0.9% 500 ML IV ONE (14:20)
[2025-02-22 22:50] LABS: GLUCOMETER DEV NAME(LOC) 5S.2D; GLUCOSE,POINT OF CARE 199 MG/DL (70-110)
[2025-02-23 00:39] VITALS: BP 168/87; PULSE 80; RESP 17; TEMP 98.2; O2SAT 96
[2025-02-23 04:53] VITALS: BP 128/72; PULSE 82; RESP 16; TEMP 98.1; O2SAT 97
[2025-02-23 06:20] LABS: PLATELET COUNT (AUTO) 173 K/uL (150-450); RED BLOOD CELL COUNT(AUTO) 2.70 MIL/uL (4.50-5.90); RED CELL DISTRIBUTION WIDTH 14.4 % (11.5-14.5); WHITE BLOOD COUNT (AUTO) 5.9 K/uL (4.5-11.0)
[2025-02-23 06:45] LABS: CALCIUM, TOTAL 8.2 mg/dL (8.8-10.5); CREATININE 3.17 mg/dL (0.60-1.30); GLOMERULAR FILTR. RATE CALC 20.0 mL/min (>60); GLUCOSE,RANDOM 120.0 mg/dL (70-110); SODIUM SERUM 139.0 mmol/L (136-145); UREA NITROGEN, BLOOD 51.0 mg/dL (7-18)
[2025-02-23 08:07] VITALS: BP 140/72; PULSE 73; RESP 18; TEMP 98.6; O2SAT 100
[2025-02-23 12:00] VITALS: BP 148/80; PULSE 77; RESP 16; TEMP 98.2; O2SAT 95
[2025-02-23] MEDS: SODIUM CHLORIDE 0.45% 1,000 ML IV SCH (13:30)
[2025-02-23 16:15] VITALS: BP 143/79; PULSE 69; RESP 18; TEMP 97.9; O2SAT 96
[2025-02-23 20:04] LABS: APPEARANCE,URINE CLEAR (CLEAR); GLUCOSE, URINE (UA) >=1000 mg/dL (NEGATIVE); LEUKOCYTE ESTERASE ,URINE NEGATIVE (NEGATIVE); NITRATE,URINE NEGATIVE (NEGATIVE); OCCULT BLOOD,URINE NEGATIVE (NEGATIVE); SPECIFIC GRAVITIY, URINE 1.019 (1.003-1.030)
[2025-02-23 20:25] LABS: SULFOSALICYLIC ACID,URINE 4+ (Negative)
[2025-02-23 20:26] LABS: SQUAMOUS EPITHELIAL CELL,UR Rare /LPF (None Seen)
[2025-02-23 20:28] VITALS: BP 139/74; PULSE 77; RESP 18; TEMP 98.1; O2SAT 97
[2025-02-23 21:06] LABS: GLUCOMETER DEV NAME(LOC) 5S.2D; GLUCOSE,POINT OF CARE 216 MG/DL (70-110)
[2025-02-24 00:08] VITALS: BP 158/73; PULSE 70; RESP 18; TEMP 98.2
[2025-02-24 03:50] VITALS: BP 132/75; PULSE 70; RESP 18; TEMP 97; O2SAT 96
[2025-02-24 05:25] LABS: APPEARANCE,URINE CLEAR (CLEAR); GLUCOSE, URINE (UA) >=1000 mg/dL (NEGATIVE); LEUKOCYTE ESTERASE ,URINE NEGATIVE (NEGATIVE); NITRATE,URINE NEGATIVE (NEGATIVE); OCCULT BLOOD,URINE NEGATIVE (NEGATIVE); SPECIFIC GRAVITIY, URINE 1.018 (1.003-1.030)
[2025-02-24 05:28] LABS: CREATININE,URINE RANDOM 71.3 mg/dL (30.0-125.0); UREA NITROGEN,URINE RANDOM 540 mg/dL (350-1000)
[2025-02-24 07:19] LABS: CALCIUM, TOTAL 7.5 mg/dL (8.8-10.5); CREATININE 3.07 mg/dL (0.60-1.30); GLOMERULAR FILTR. RATE CALC 20.0 mL/min (>60); GLUCOSE,RANDOM 170.0 mg/dL (70-110); SODIUM SERUM 136.0 mmol/L (136-145); UREA NITROGEN, BLOOD 46.0 mg/dL (7-18)
[2025-02-24 07:21] LABS: PLATELET COUNT (AUTO) 168 K/uL (150-450); RED BLOOD CELL COUNT(AUTO) 2.82 MIL/uL (4.50-5.90); RED CELL DISTRIBUTION WIDTH 14.0 % (11.5-14.5); WHITE BLOOD COUNT (AUTO) 5.0 K/uL (4.5-11.0)
[2025-02-24 07:23] LABS: PHOSPHORUS 3.5 mg/dL (2.5-4.9)
[2025-02-24 07:45] VITALS: BP 155/75; PULSE 71; RESP 19; TEMP 98.1; O2SAT 95
[2025-02-24 11:18] VITALS: BP 130/74; PULSE 77; RESP 18; TEMP 97.7; O2SAT 96
[2025-02-24 11:45] LABS: GLUCOMETER DEV NAME(LOC) 5S.1D; GLUCOSE,POINT OF CARE 170 MG/DL (70-110)
[2025-02-24 13:00] LABS: GLUCOMETER DEV NAME(LOC) 5S.2D; GLUCOSE,POINT OF CARE 238 MG/DL (70-110)
[2025-02-24 15:30] VITALS: BP 145/85; PULSE 70; RESP 18; TEMP 97.5; O2SAT 97
[2025-02-24] MEDS ORDERED: DEXTROSE 50%-WATER 25 GM/50 ML SYRINGE IVP PRN (16:00)
[2025-02-24] MEDS: INSULIN LISPRO 100 UNITS/ML SQ PRN (17:51)
[2025-02-24 19:43] VITALS: BP 131/69; PULSE 70; RESP 18; TEMP 98.1; O2SAT 95
[2025-02-25 04:28] VITALS: BP 155/81; PULSE 71; RESP 18; TEMP 98.1; O2SAT 96
[2025-02-25 05:36] LABS: GLUCOMETER DEV NAME(LOC) 6N.2C; GLUCOSE,POINT OF CARE 117 MG/DL (70-110)
[2025-02-25 05:36] LABS: GLUCOMETER DEV NAME(LOC) 6N.2C; GLUCOSE,POINT OF CARE 177 MG/DL (70-110)
[2025-02-25 06:56] LABS: CALCIUM, TOTAL 7.5 mg/dL (8.8-10.5); CREATININE 2.77 mg/dL (0.60-1.30); GLOMERULAR FILTR. RATE CALC 23.0 mL/min (>60); GLUCOSE,RANDOM 97.0 mg/dL (70-110); SODIUM SERUM 139.0 mmol/L (136-145); UREA NITROGEN, BLOOD 37.0 mg/dL (7-18)
[2025-02-25 08:01] VITALS: BP 179/93; PULSE 74; RESP 18; TEMP 98.1; O2SAT 93
[2025-02-25 08:25] LABS: PHOSPHORUS 3.5 mg/dL (2.5-4.9)
[2025-02-25] MEDS ORDERED: SODIUM CHLORIDE 0.9% 0 ML IV ONE (10:14)
[2025-02-25 11:01] LABS: GLUCOMETER DEV NAME(LOC) 6S.2; GLUCOSE,POINT OF CARE 100 MG/DL (70-110)
[2025-02-25] MEDS ORDERED: HYDR50TA37 PO (11:10)
[2025-02-25 12:45] LABS: GLUCOMETER DEV NAME(LOC) 6N.2C; GLUCOSE,POINT OF CARE 145 MG/DL (70-110)
== END 2025-02-25 17:00 | disposition home or self-care (01) | DRG 872 ==
LOC: EMS 11:44 → EDH 14:53 → 5S 17:35 → 6N 02-24 15:21
PROVIDERS: ADMIT Internal Medicine; ATTEND Internal Medicine
DX: A41.9 Sepsis, unspecified organism (principal); I13.0 Hypertensive heart and chronic kidney disease with heart failure and stage 1 through stage 4 chronic kidney disease, or unspecified chronic kidney disease; N17.9 Acute kidney failure, unspecified; E11.65 Type 2 diabetes mellitus with hyperglycemia; I16.0 Hypertensive urgency; K52.9 Noninfective gastroenteritis and colitis, unspecified; E78.5 Hyperlipidemia, unspecified; K31.84 Gastroparesis; E11.43 Type 2 diabetes mellitus with diabetic autonomic (poly)neuropathy; E11.22 Type 2 diabetes mellitus with diabetic chronic kidney disease; I50.9 Heart failure, unspecified; N18.9 Chronic kidney disease, unspecified; E21.3 Hyperparathyroidism, unspecified; K21.9 Gastro-esophageal reflux disease without esophagitis; M10.9 Gout, unspecified; A08.4 Viral intestinal infection, unspecified; Z79.4 Long term (current) use of insulin; Z79.82 Long term (current) use of aspirin; Z79.84 Long term (current) use of oral hypoglycemic drugs; Z79.85 Long-term (current) use of injectable non-insulin antidiabetic drugs; Z79.899 Other long term (current) drug therapy
CPT/HCPCS: 71045; 74176; 76770; 80048; 81001; 81002; 82570; 82962; 83605; 83690; 83735; 84100; 84145; 84300; 84484; 84540; 85025; 85610; 87040; 93005; 96361; 96365; 96375; 99285; G0378; J0360; J1815; J2270; J2405; J2470; J2543; J2765; J7030; J7040; J7060; 36415-L1; 36415-TC

== ENCOUNTER 2025-06-19 14:37 | Inpatient (IN) | payer OTHER ==
[~2025-06-19] VITALS: Ht 167.6 cm; Wt 59.7 kg
[~2025-06-19 14:37] MED LIST changes: -AMLO-258 PO; +CALC0.2521 PO; +CHOL25TA4 PO; -DULA0.75 SQ; +EMPA25TA3 PO; +FURO20TA4 PO; +HYDR50TA37 PO; -LOSA-381 PO; +PREG25CA19 PO; -SACU1TAB7 PO; +TIRZ5PEN SQ
[2025-06-19] MEDS ORDERED: SODIUM CHLORIDE 0.9% 500 ML IV ONE (14:53)
[2025-06-19] MEDS: SODIUM CHLORIDE 0.9% 500 ML IV ONE (14:55)
[2025-06-19 15:08] LABS: PLATELET COUNT (AUTO) 199 K/uL (150-450); RED BLOOD CELL COUNT(AUTO) 2.53 MIL/uL (4.50-5.90); RED CELL DISTRIBUTION WIDTH 14.0 % (11.5-14.5); WHITE BLOOD COUNT (AUTO) 6.1 K/uL (4.5-11.0)
[2025-06-19 15:13] LABS: CALCIUM, TOTAL 8.4 mg/dL (8.8-10.5); CREATININE 3.95 mg/dL (0.60-1.30); GLOMERULAR FILTR. RATE CALC 15 mL/min (>60); GLUCOSE,RANDOM 188 mg/dL (70-110); SODIUM SERUM 141 mmol/L (136-145); UREA NITROGEN, BLOOD 45 mg/dL (7-18)
[2025-06-19 15:15] LABS: GLUCOMETER DEV NAME(LOC) ER.7; GLUCOSE,POINT OF CARE 155 MG/DL (70-110)
[2025-06-19] MEDS ORDERED: METF-1211 PO (15:15)
[2025-06-19] MEDS ORDERED: INSU100I24 SQ (15:15)
[2025-06-19] MEDS ORDERED: SACU1TAB7 PO (15:15)
[2025-06-19 15:24] LABS: TROPONIN I-HIGH SENSITIVITY 8 ng/L (<76)
[2025-06-19] MEDS: ONDANSETRON HCL 4 MG/2 ML VIAL IVP ONE (15:24)
[2025-06-19 15:25] LABS: LACTIC ACID 2.6 mmol/L (0.4-2.0)
[2025-06-19] MEDS: INSULIN REGULAR, HUMAN 100 UNITS/ML IVP ONE ×2 (15:26→19:52)
[2025-06-19 15:29] LABS: ASPARTATE AMINOTRANSFERASE 24 U/L (15-37); TOTAL PROTEIN, SERUM 7.1 g/dL (6.4-8.2)
[2025-06-19] MEDS: CALCIUM GLUCONATE 100 MG/ML 10 ML IVP ONE (15:29)
[2025-06-19] MEDS: SODIUM ZIRCONIUM CYCLOSILICATE 10 GM POWDER PACKET PO ONE (15:30)
[2025-06-19] MEDS: DEXTROSE 50%-WATER 25 GM/50 ML SYRINGE IVP ONE ×3 (15:30→19:58)
[2025-06-19] MEDS: ACETAMINOPHEN 500 MG TABLET PO ONE (15:31)
[2025-06-19] MEDS: SODIUM CHLORIDE 0.9% 1,000 ML IV ONE (15:31)
[2025-06-19] MEDS: SODIUM CHLORIDE 0.9% 1,300 ML IV ONE (15:53)
[2025-06-19] MEDS: CefTRIAXone 1 GM/DEXTROSE 50 ML IV ONE (15:58)
[2025-06-19] MEDS ORDERED: DEXTROSE 50%-WATER 25 GM/50 ML SYRINGE IVP PRN (16:45)
[2025-06-19] MEDS ORDERED: ACETAMINOPHEN 325 MG TABLET PO PRN (16:45)
[2025-06-19] MEDS ORDERED: ZOLPIDEM TARTRATE 5 MG TABLET PO PRN (16:45)
[2025-06-19 17:10] LABS: GLUCOMETER DEV NAME(LOC) ER.7; GLUCOSE,POINT OF CARE 57 MG/DL (70-110)
[2025-06-19 17:21] LABS: GLUCOMETER DEV NAME(LOC) ER.7; GLUCOSE,POINT OF CARE 69 MG/DL (70-110)
[2025-06-19 17:36] LABS: SODIUM SERUM 143.0 mmol/L (136-145)
[2025-06-19 18:48] VITALS: BP 159/109; PULSE 62; RESP 18; TEMP 97.5; O2SAT 98
[2025-06-19] MEDS: PANTOPRAZOLE SODIUM 40 MG/VIAL IVP SCH (19:48)
[2025-06-19] MEDS: SODIUM CHLORIDE 0.45% 1,000 ML IV ONE (19:48)
[2025-06-19] MEDS: ONDANSETRON HCL 4 MG/2 ML VIAL IVP PRN (19:49)
[2025-06-19] MEDS: SODIUM ZIRCONIUM CYCLOSILICATE 5 GM POWDER PACKET PO ONE (19:51)
[2025-06-19 20:12] LABS: PLATELET COUNT (AUTO) 172 K/uL (150-450); RED BLOOD CELL COUNT(AUTO) 2.23 MIL/uL (4.50-5.90); RED CELL DISTRIBUTION WIDTH 14.2 % (11.5-14.5); WHITE BLOOD COUNT (AUTO) 6.2 K/uL (4.5-11.0)
[2025-06-19 20:26] VITALS: BP 94/0; PULSE 70; RESP 19; TEMP 97.5; O2SAT 92
[2025-06-19] MEDS: DOCUSATE SODIUM 100 MG CAPSULE PO SCH (21:00)
[2025-06-19 22:11] LABS: GLUCOMETER DEV NAME(LOC) 5S.2E; GLUCOSE,POINT OF CARE 151 MG/DL (70-110)
[2025-06-20] VITALS (7 sets, daily range): BP systolic 112–171; BP diastolic 49–89; PULSE 69–107; RESP 16–19; TEMP 98.2–99.1; O2SAT 91–98
[2025-06-20] MEDS ORDERED: HEPARIN SODIUM,PORCINE 5,000 UNITS/ML VIAL SQ SCH
[2025-06-20 06:47] LABS: CALCIUM, TOTAL 7.6 mg/dL (8.8-10.5); CREATININE 3.96 mg/dL (0.60-1.30); GLOMERULAR FILTR. RATE CALC 15.0 mL/min (>60); GLUCOSE,RANDOM 94.0 mg/dL (70-110); SODIUM SERUM 142.0 mmol/L (136-145); UREA NITROGEN, BLOOD 51.0 mg/dL (7-18)
[2025-06-20 07:02] LABS: % IRON SATURATION 25.7 % (30-44); IRON, SERUM 51.0 mcg/dL (50-175); PHOSPHORUS 4.6 mg/dL (2.5-4.9)
[2025-06-20 07:07] LABS: PLATELET COUNT (AUTO) 190 K/uL (150-450); RED BLOOD CELL COUNT(AUTO) 2.27 MIL/uL (4.50-5.90); RED CELL DISTRIBUTION WIDTH 14.0 % (11.5-14.5); WHITE BLOOD COUNT (AUTO) 7.1 K/uL (4.5-11.0)
[2025-06-20] MEDS: EPOETIN ALFA 10,000 UNITS/ML VIAL SQ SCH (08:15)
[2025-06-20] MEDS ORDERED: FAMOTIDINE 20 MG TABLET PO SCH (09:00)
[2025-06-20] MEDS: SODIUM ZIRCONIUM CYCLOSILICATE 10 GM POWDER PACKET PO ONE (11:16)
[2025-06-20] MEDS: PANTOPRAZOLE SODIUM 80 MG in SODIUM CHLORIDE 0.9% 100 ML IV SCH (11:16)
[2025-06-20] MEDS: INSULIN LISPRO 100 UNITS/ML SQ PRN (11:20)
[2025-06-20 17:26] LABS: GLUCOMETER DEV NAME(LOC) 5N.2C; GLUCOSE,POINT OF CARE 144 MG/DL (70-110)
[2025-06-20 17:26] LABS: GLUCOMETER DEV NAME(LOC) 5S.2E; GLUCOSE,POINT OF CARE 93 MG/DL (70-110)
[2025-06-20 17:31] LABS: GLUCOMETER DEV NAME(LOC) 5S.2E; GLUCOSE,POINT OF CARE 121 MG/DL (70-110)
[2025-06-21 03:44] VITALS: BP 173/83; PULSE 101; RESP 18; TEMP 99.1; O2SAT 98
[2025-06-21 05:26] LABS: GLUCOMETER DEV NAME(LOC) 5N.2C; GLUCOSE,POINT OF CARE 148 MG/DL (70-110)
[2025-06-21 05:56] LABS: PLATELET COUNT (AUTO) 198 K/uL (150-450); RED BLOOD CELL COUNT(AUTO) 2.75 MIL/uL (4.50-5.90); RED CELL DISTRIBUTION WIDTH 13.9 % (11.5-14.5); WHITE BLOOD COUNT (AUTO) 12.8 K/uL (4.5-11.0)
[2025-06-21 07:33] LABS: CALCIUM, TOTAL 7.9 mg/dL (8.8-10.5); CREATININE 3.7 mg/dL (0.60-1.30); GLOMERULAR FILTR. RATE CALC 17.0 mL/min (>60); GLUCOSE,RANDOM 109.0 mg/dL (70-110); SODIUM SERUM 146.0 mmol/L (136-145); UREA NITROGEN, BLOOD 53.0 mg/dL (7-18)
[2025-06-21 07:53] VITALS: BP 162/89; PULSE 103; RESP 18; TEMP 99.3; O2SAT 98
[2025-06-21] MEDS ORDERED: SODIUM CHLORIDE 0.9% 1,000 ML ONE (10:07)
[2025-06-21 10:13] LABS: APPEARANCE,URINE CLEAR (CLEAR); GLUCOSE, URINE (UA) >=1000 mg/dL (NEGATIVE); LEUKOCYTE ESTERASE ,URINE NEGATIVE (NEGATIVE); NITRATE,URINE NEGATIVE (NEGATIVE); OCCULT BLOOD,URINE SMALL (NEGATIVE); SPECIFIC GRAVITIY, URINE 1.012 (1.003-1.030)
[2025-06-21 10:45] LABS: SULFOSALICYLIC ACID,URINE 2+ (Negative)
[2025-06-21] MEDS ORDERED: PROPOFOL 1% 20 ML VIAL IVP ONE (12:00)
[2025-06-21] MEDS ORDERED: LIDOCAINE/PF 2% 5 ML VIAL ONE (12:00)
[2025-06-21] MEDS ORDERED: PANTOPRAZOLE SODIUM 80 MG in SODIUM CHLORIDE 0.9% 100 ML IV SCH (12:30)
[2025-06-21] MEDS: SODIUM BICARBONATE 100 MEQ in DEXTROSE 5%-WATER 1,000 ML IV SCH (14:06)
[2025-06-21 14:41] LABS: GLUCOMETER DEV NAME(LOC) 5N.1D; GLUCOSE,POINT OF CARE 107 MG/DL (70-110)
[2025-06-21 15:44] VITALS: BP 160/92; PULSE 102; RESP 16; TEMP 98.8; O2SAT 97
[2025-06-21] MEDS: DESMOPRESSIN ACETATE 18 MCG in SODIUM CHLORIDE 0.9% 50 ML IV ONE (17:30)
[2025-06-21 18:41] LABS: GLUCOMETER DEV NAME(LOC) 5N.1D; GLUCOSE,POINT OF CARE 135 MG/DL (70-110)
[2025-06-21 20:03] VITALS: BP 163/67; PULSE 106; RESP 17; TEMP 98.8; O2SAT 97
[2025-06-21 23:13] VITALS: BP 171/76; PULSE 100; RESP 17; TEMP 98.4; O2SAT 95
[2025-06-22] VITALS (8 sets, daily range): BP systolic 130–175; BP diastolic 63–90; PULSE 86–98; RESP 16–18; TEMP 97.7–99; O2SAT 95–98
[2025-06-22 06:20] LABS: GLUCOMETER DEV NAME(LOC) 5S.1E; GLUCOSE,POINT OF CARE 177 MG/DL (70-110)
[2025-06-22 09:09] LABS: PLATELET COUNT (AUTO) 209 K/uL (150-450); RED BLOOD CELL COUNT(AUTO) 2.87 MIL/uL (4.50-5.90); RED CELL DISTRIBUTION WIDTH 14.4 % (11.5-14.5); WHITE BLOOD COUNT (AUTO) 13.7 K/uL (4.5-11.0)
[2025-06-22 09:26] LABS: CALCIUM, TOTAL 8.0 mg/dL (8.8-10.5); CREATININE 3.21 mg/dL (0.60-1.30); GLOMERULAR FILTR. RATE CALC 19.0 mL/min (>60); GLUCOSE,RANDOM 164.0 mg/dL (70-110); SODIUM SERUM 146.0 mmol/L (136-145); UREA NITROGEN, BLOOD 50.0 mg/dL (7-18)
[2025-06-22 11:13] LABS: PLATELET COUNT (AUTO) 196 K/uL (150-450); RED BLOOD CELL COUNT(AUTO) 2.70 MIL/uL (4.50-5.90); RED CELL DISTRIBUTION WIDTH 14.3 % (11.5-14.5); WHITE BLOOD COUNT (AUTO) 12.9 K/uL (4.5-11.0)
[2025-06-22 11:50] LABS: GLUCOMETER DEV NAME(LOC) 5S.2E; GLUCOSE,POINT OF CARE 187 MG/DL (70-110)
[2025-06-22 17:26] LABS: GLUCOMETER DEV NAME(LOC) 5S.2E; GLUCOSE,POINT OF CARE 184 MG/DL (70-110)
[2025-06-22] MEDS: PANTOPRAZOLE SODIUM 40 MG DR TABLET PO SCH (20:22)
[2025-06-23 01:45] LABS: GLUCOMETER DEV NAME(LOC) 5S.1E; GLUCOSE,POINT OF CARE 126 MG/DL (70-110)
[2025-06-23 04:25] VITALS: BP 147/81; PULSE 91; RESP 17; TEMP 98.2; O2SAT 95
[2025-06-23 07:45] LABS: GLUCOMETER DEV NAME(LOC) 5S.1E; GLUCOSE,POINT OF CARE 193 MG/DL (70-110)
[2025-06-23 08:45] VITALS: BP 144/80; PULSE 82; RESP 18; TEMP 98.4; O2SAT 97
[2025-06-23 09:19] LABS: PLATELET COUNT (AUTO) 211 K/uL (150-450); RED BLOOD CELL COUNT(AUTO) 2.81 MIL/uL (4.50-5.90); RED CELL DISTRIBUTION WIDTH 14.2 % (11.5-14.5); WHITE BLOOD COUNT (AUTO) 9.4 K/uL (4.5-11.0)
[2025-06-23 09:27] LABS: CALCIUM, TOTAL 7.9 mg/dL (8.8-10.5); CREATININE 3.02 mg/dL (0.60-1.30); GLOMERULAR FILTR. RATE CALC 21.0 mL/min (>60); GLUCOSE,RANDOM 102.0 mg/dL (70-110); SODIUM SERUM 142.0 mmol/L (136-145); UREA NITROGEN, BLOOD 42.0 mg/dL (7-18)
[2025-06-23 12:26] LABS: GLUCOMETER DEV NAME(LOC) 5S.2E; GLUCOSE,POINT OF CARE 135 MG/DL (70-110)
[2025-06-23 12:35] VITALS: BP 172/88; PULSE 91; RESP 18; TEMP 98.1; O2SAT 93
[2025-06-23 15:56] VITALS: BP 152/78; PULSE 91; RESP 17; TEMP 98.2; O2SAT 95
[2025-06-23 18:40] LABS: GLUCOMETER DEV NAME(LOC) 5S.2E; GLUCOSE,POINT OF CARE 153 MG/DL (70-110)
[2025-06-23 20:40] VITALS: BP 172/82; PULSE 90; RESP 18; TEMP 98.8; O2SAT 94
[2025-06-23 21:00] VITALS: BP 165/80; PULSE 90; RESP 18; O2SAT 95
[2025-06-23] MEDS: OxyCODONE HCL/ACETAMINOPHEN 5-325 MG TABLET PO PRN (21:05)
[2025-06-23 21:25] LABS: GLUCOMETER DEV NAME(LOC) 5S.1E; GLUCOSE,POINT OF CARE 122 MG/DL (70-110)
[2025-06-24 00:33] VITALS: BP 151/84; PULSE 89; RESP 16; TEMP 98.1; O2SAT 96
[2025-06-24 05:39] VITALS: BP 156/84; PULSE 87; RESP 16; TEMP 98.2; O2SAT 93
[2025-06-24 06:35] LABS: PLATELET COUNT (AUTO) 211 K/uL (150-450); RED BLOOD CELL COUNT(AUTO) 2.70 MIL/uL (4.50-5.90); RED CELL DISTRIBUTION WIDTH 14.5 % (11.5-14.5); WHITE BLOOD COUNT (AUTO) 6.3 K/uL (4.5-11.0)
[2025-06-24 06:47] LABS: CALCIUM, TOTAL 8.0 mg/dL (8.8-10.5); CREATININE 2.81 mg/dL (0.60-1.30); GLOMERULAR FILTR. RATE CALC 23.0 mL/min (>60); GLUCOSE,RANDOM 126.0 mg/dL (70-110); SODIUM SERUM 142.0 mmol/L (136-145); UREA NITROGEN, BLOOD 36.0 mg/dL (7-18)
[2025-06-24 06:56] LABS: PHOSPHORUS 3.4 mg/dL (2.5-4.9)
[2025-06-24 08:00] VITALS: BP 145/81; PULSE 90; RESP 17; TEMP 97.9; O2SAT 93
[2025-06-24] MEDS ORDERED: SODIUM CHLORIDE 0.9% 250 ML IV ONE (09:38)
[2025-06-24] MEDS: MAGNESIUM SULFATE 3 GM in DEXTROSE 5%-WATER 100 ML IV ONE (09:41)
[2025-06-24 11:00] VITALS: BP 150/80; PULSE 89; RESP 18; TEMP 97.8; O2SAT 93
[2025-06-24] MEDS ORDERED: PANT-31 PO (11:25)
[2025-06-24 17:45] LABS: GLUCOMETER DEV NAME(LOC) 5S.1E; GLUCOSE,POINT OF CARE 129 MG/DL (70-110)
[2025-06-24 17:45] LABS: GLUCOMETER DEV NAME(LOC) 5S.1E; GLUCOSE,POINT OF CARE 171 MG/DL (70-110)
== END 2025-06-24 13:20 | disposition home or self-care (01) | DRG 377 ==
LOC: EMS 14:37 → EDH 16:45 → 5N 18:20
PROVIDERS: ADMIT Internal Medicine; ATTEND Internal Medicine
PROC: 0DJ08ZZ Inspection of Upper Intestinal Tract, Via Natural or Artificial Opening Endoscopic (ICD-10-PCS; principal; 2025-06-21 11:45)
DX: K25.4 Chronic or unspecified gastric ulcer with hemorrhage (principal); K20.91 Esophagitis, unspecified with bleeding; I13.0 Hypertensive heart and chronic kidney disease with heart failure and stage 1 through stage 4 chronic kidney disease, or unspecified chronic kidney disease; D63.1 Anemia in chronic kidney disease; I16.0 Hypertensive urgency; D64.9 Anemia, unspecified; E11.22 Type 2 diabetes mellitus with diabetic chronic kidney disease; K29.61 Other gastritis with bleeding; N18.4 Chronic kidney disease, stage 4 (severe); E11.649 Type 2 diabetes mellitus with hypoglycemia without coma; E87.5 Hyperkalemia; E78.5 Hyperlipidemia, unspecified; K31.9 Disease of stomach and duodenum, unspecified; M10.9 Gout, unspecified; I25.10 Atherosclerotic heart disease of native coronary artery without angina pectoris; Z79.4 Long term (current) use of insulin; Z79.82 Long term (current) use of aspirin; Z79.84 Long term (current) use of oral hypoglycemic drugs; Z79.899 Other long term (current) drug therapy; Z83.3 Family history of diabetes mellitus
CPT/HCPCS: 70450; 71045; 74176; 80048; 80051; 80076; 81001; 81002; 82962; 83036; 83540; 83550; 83605; 83735; 83880; 84100; 84484; 85025; 85610; 85730; 86850; 86900; 86901; 86923; 87040; 93005; 99291; J0360; J0610; J0696; J0885; J1815; J2405; J2470; J2597; J2704; J3475; J3490; J7030; J7040; J7050; J7060; 36415-L1; 36415-TC

== ENCOUNTER 2025-07-18 02:24 | Emergency (ER) | payer OTHER ==
[~2025-07-18] VITALS: Ht 165.1 cm; Wt 59.1 kg
[~2025-07-18 02:24] MED LIST changes: -ASPI-1444 PO; -CALC0.2521 PO; -CHOL25TA4 PO; -EMPA25TA3 PO; -FURO20TA4 PO; -HYDR50TA37 PO; -INSLAN SQ; -ISOS60TA77 PO; -OMEP-148 PO; +PANT-31 PO; -PREG25CA19 PO; -SYRI-590 SQ; -TIRZ5PEN SQ
[2025-07-18 02:31] VITALS: TEMP 98.2
[2025-07-18 02:51] LABS: GLUCOMETER DEV NAME(LOC) ERT.7; GLUCOSE,POINT OF CARE 125 MG/DL (70-110)
[2025-07-18 07:34] VITALS: BP 159/94; PULSE 80; RESP 20; O2SAT 100
== END 2025-07-18 07:42 | disposition home or self-care (01) ==
LOC: EMS 02:25
DX: T83.091A Other mechanical complication of indwelling urethral catheter, initial encounter (principal); E11.22 Type 2 diabetes mellitus with diabetic chronic kidney disease; I12.9 Hypertensive chronic kidney disease with stage 1 through stage 4 chronic kidney disease, or unspecified chronic kidney disease; N18.9 Chronic kidney disease, unspecified; M10.9 Gout, unspecified; Z79.899 Other long term (current) drug therapy; Y73.8 Miscellaneous gastroenterology and urology devices associated with adverse incidents, not elsewhere classified
CPT/HCPCS: 82962; 99283